=== PATIENT | male | born 1945 | race Caucasian/White ===

== ENCOUNTER 2020-08-31 20:00 | Emergency (ER) | payer MEDICARE, OTHER ==
[~2020-08-31] VITALS: Ht 165.1 cm; Wt 63.5 kg
--- NOTE | ~2020-08-31 | EMS ---
[place] [address] EMS Patient Care Report Name: JEFFERSON MOODY [id number] Admission: 08/31/20 Attend Phys: Discharge: 08/31/20 Date of : 47 Report #: [id number] THIS REPORT FOR: //name// Report Transmitted: 08/31/2020 21:15 EMS Care Summary [facility] Incident [id number] @ 08/31/2020 19:09 Incident Location [address] [place] [address] Patient JEFFERSON MOODY Male, 75 Years 1945 Patient Address [address] [place] [address] Patient History Brain Tumor, Patient Allergies No known allergies, Patient Medications Levetiracetam, Chief Complaint Right Sided Numbness Disposition Transported Lights/[place] Dispatch Reason Falls Transported To [facility] Narrative Dispatch: [facility] was dispatched for a male patient that had fallen down stairs with a possible broken arm. Med 1 copied tones and went en route [place] [address] EMS Patient Care Report Name: JEFFERSON MOODY [facility] [id number] Admission: 08/31/20 Attend Phys: Discharge: 08/31/20 Date of : 47 Report #: [id number] Chief Complaint/Condition: Med 1 arrived on scene to find the patient lying supine on the basement floor. The patient stated he fell approx. 10ft from the top of the stairs but did not have any complaints of pain or injury. The patient presented with slurred speech, right sided deficits, and was A&OX3. Patient did not appear to be in any immediate distress. History of present illness/KONSTANTIN: The patient stated he had a sudden loss of balance and fell down 10ft of stairs. The stated she heard her fall and went to check on him. She stated she called 911 immediately after the fall. 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 The stated the patient's speech appeared to be normal. . Patient denied any loss of consciousness or striking his head or neck. Assessment: Airway: Clear, patent, and self maintained. Breathing: Clear and equal bilaterally. Non labored. Circulation: Skin is pink, warm, and dry. Strong radial pulses. Disability: Patient is A&OX3. Exposures: No life threats were found. See "assessments" tab for further. Reason for ambulance: Patient had a fall down approx. 10 ft of stairs. Patient showed signs of a possible stroke and needed transport to a specialty (stroke) facility. Treatments: ALS assessment. C-Collar placement. Two 20G IV in left and right AC successful. 12 lead EKG showing normal sinus rhythm with RBBB. [place] stroke scale positive and MEND exam showing positive. Stroke activation called from field. Vitals monitored throughout transport. Summary: Med 1 arrived on scene to find the patient lying supine at the bottom of the staircase. The patient stated he did not have any complaints of injury or illness. A c-collar was immediately placed on the patient. The patient was A&OX3 with a GCS of 14. Upon further assessment, the patient had right sided deficits and had difficulty following commands with his right arm or leg during MEND and CPHSS. A blood glucose was taken and showed a reading of 127. Delayed on scene time due to response from [facility] for extrication of the patient from the basement. Once [facility] was on scene, the patient was then placed onto the scoop stretcher, secured in place, and carried up the staircase out to the garage where the stretcher was sitting. The patient was then placed into the ambulance for treatment and transport. Med 1 went en route to [place] with lights and sirens. Two 20 G IV's were successfully placed. A 12 lead EKG was taken showing normal sinus rhythm with a RBBB. IV blood draw was foregone to keep IV access open. Report was given to the hospital and a stroke activation was made. The patient's overall condition remained the same. No further questions or orders were given. Med 1 arrived at destination and the [place] [address] EMS Patient Care Report Name: JEFFERSON MOODY Room: [facility] FAUZIA Barger#: [id number] Admission: 08/31/20 Attend Phys: Discharge: 08/31/20 Date of : 47 Report #: [id number] Report was given and signatures and paperwork were received. Med 1 returned back in service. Initial Vitals @19:41P: 88,BP: 166/87,SpO2: 95,UT Suspected: false @20:10P: 86,UT Suspected: false @19:53P: 87,BP: 186/92,SpO2: 97,UT Suspected: false @19:47P: 86,SpO2: 96, @20:12P: 0,SpO2: 95,UT Suspected: false @20:06P: 86,BP: 160/92,SpO2: 96, @19:20P: 98,R: 18,BP: 170/110,GCS: 14,Glucose: 127,Revised Trauma: 12, @20:01P: 88,BP: 161/90,SpO2: 95,UT Suspected: false Assessments @19:15MENTAL:Person Oriented,Time Oriented,Place Oriented,SKIN:HEENT:LUNG SOUNDS:ABDOMEN:PELVIS//GI:EXTREMITIES:Right Arm: Weakness,Right Leg: Weakness,PULSE:Radial: 2+ Normal,NEURO:Slurred Speech,Weakness Right-Sided,@19:45MENTAL:Place Oriented,Person Oriented,Time Oriented,SKIN:HEENT:LUNG SOUNDS:ABDOMEN:PELVIS//GI:EXTREMITIES:Right Arm: Weakness,Right Leg: Weakness,PULSE:Radial: 2+ Normal,NEURO:Weakness Right-Sided,Slurred Speech, Impression Stroke Procedures @19:15ALS AssessmentResponse: UnchangedSucceeded@19:41Saline Lock 0cc (20 ga) Site: Antecubital-RightResponse: UnchangedSucceeded@19:50Saline Lock 0cc (20 ga) Site: Antecubital-LeftResponse: UnchangedSucceeded@20:0112-Lead ECGResponse: UnchangedSucceeded@20:1212-Lead ECGResponse: UnchangedSucceeded@19:5312-Lead ECGResponse: UnchangedSucceeded@20:1012-Lead ECGResponse: UnchangedSucceeded@19:55Stroke AlertResponse: Unchanged@19:16Spinal Motion RestrictionResponse: UnchangedSucceeded Timeline 19:08,Call Received 19:09,Dispatched 19:12,En Route 19:14,On Scene 19:15,At Patient 19:15,ALS Assessment,Response: UnchangedSucceeded, 19:16,Spinal Motion Restriction,Response: UnchangedSucceeded, 19:20,BP: 170/110 M,PULSE: 98,RR: 18 R,SPO2: Ox,ETCO2: ,B,PAIN: ,GCS: 14, 19:41,Saline Lock 0cc 20 ga Site: Antecubital-Right,Response: UnchangedSucceeded, [place] [address] EMS Patient Care Report Name: JEFFERSON MOODY Room: [facility]#: [id number] Admission: 08/31/20 Attend Phys: Discharge: 08/31/20 Date of : 47 Report #: [id number] 19:41,BP: 166/87 M,PULSE: 88,RR: R,SPO2: 95 Ox,ETCO2: ,BG: ,PAIN: ,GCS: , 19:42,Depart Scene 19:47,BP: / M,PULSE: 86,RR: R,SPO2: 96 Ox,ETCO2: ,BG: ,PAIN: ,GCS: , 19:50,Saline Lock 0cc 20 ga Site: Antecubital-Left,Response: UnchangedSucceeded, 19:53,12-Lead ECG,Response: UnchangedSucceeded, 19:53,BP: 186/92 M,PULSE: 87,RR: R,SPO2: 97 Ox,ETCO2: ,BG: ,PAIN: ,GCS: , 19:55,Stroke Alert,Response: Unchanged 20:01,12-Lead ECG,Response: UnchangedSucceeded, 20:01,BP: 161/90 M,PULSE: 88,RR: R,SPO2: 95 Ox,ETCO2: ,BG: ,PAIN: ,GCS: , 20:06,BP: 160/92 M,PULSE: 86,RR: R,SPO2: 96 Ox,ETCO2: ,BG: ,PAIN: ,GCS: , 20:10,12-Lead ECG,Response: UnchangedSucceeded, 20:10,BP: / M,PULSE: 86,RR: R,SPO2: Ox,ETCO2: ,BG: ,PAIN: ,GCS: , 20:10,At Destination 20:12,12-Lead ECG,Response: UnchangedSucceeded, 20:12,BP: / M,PULSE: 0,RR: R,SPO2: 95 Ox,ETCO2: ,BG: ,PAIN: ,GCS: , 20:58,Call Closed Disclaimer v1.1 Copyright 2020 [employer] This EMS Care Summary contains data elements from the applicable legal record (which may be displayed differently). It is designed to provide pertinent information for the following purposes: continuity of care, clinical quality, and state data reporting. The complete legal record is available to ED staff and administrators of the receiving hospital in [employer] Patient Tracker. All data is provided "as is."
[2020-08-31 20:51] LABS: ABSOLUTE BASOPHILS 0.1 thou/uL (0.0-0.2); ABSOLUTE LYMPHOCYTES 2.1 thou/uL (0.8-5.3); ABSOLUTE MONOCYTES 0.7 thou/uL (0.0-1.2); ABSOLUTE NEUTROPHILS 8.9 thou/uL (1.6-8.1); BASOPHILS 0.7 %; EOSINOPHILS 0.3 %; HEMATOCRIT 46.1 % (42.0-52.0); HEMOGLOBIN 15.3 gm/dL (14.0-18.0); LYMPHOCYTES 18.1 %; MCHC 33.3 g/dL (28.0-37.0); MCV 90.2 fL (80.0-100.0); MONOCYTES 5.7 %; MPV 8.5 fl. (7.2-11.1); NUCLEATED RBCS 0 /100WBC; PLATELET COUNT* 213 thou/uL (150-400); POLYS 75.2 %; RBC 5.11 mil/uL (4.50-6.00); RDW-CV 13.2 % (10.5-14.5); WBC 11.9 thou/uL (4.0-11.0)
[2020-08-31 21:01] LABS: APTT 24.5 Seconds (25.0-31.3); INR 1.1; PROTIME 11.3 Seconds (9.20-11.50)
[2020-08-31] MEDS ORDERED: KEPPRA XR500 MG PO (21:05)
[2020-08-31 21:31] LABS: CALCIUM 9.1 mg/dL (8.5-10.1); CREATININE 1.1 mg/dL (0.6-1.3); POTASSIUM 3.6 mmol/L (3.5-5.1)
[2020-08-31 21:36] LABS: TOTAL BILIRUBIN 0.4 mg/dL (<0.1-1.0); TOTAL PROTEIN 7.3 g/dL (6.4-8.2)
[2020-08-31 21:59] VITALS: BP 151/82
--- NOTE | 2020-09-01 09:55 | EKG ---
[place] [address] ELECTROCARDIOGRAM REPORT Name: JEFFERSON MOODY Room: [facility]#: [id number] Admission: 08/31/20 Attend Phys: Discharge: 08/31/20 Date of : 47 Date of Service: 08/31/202038 Report #: [id number] THIS REPORT FOR: //name// [facility] ED Test Date: 2020-08-31 Test Time: 20:39:46 Pat Name: JEFFERSON MOODY Department: Room: Gender: Environmental Engineering Technician: [place] : 1945 Requested By: Gavi Josue Order Number: [id number] Dominique MD: Cheko Arias Measurements Intervals [place] Rate: 79 P: 49 GA: 127 QRS: -31 QRSD: 139 T: -3 QT: 397 QTc: 456 Interpretive Statements Sinus rhythm artifact noted Right bundle branch block No previous ECG available for comparison Electronically Signed On 09-01-2020 9:54:58 CDT by Cheko Arias [email or web address] <ELECTRONICALLY SIGNED> By: Cheko Arias MD, [facility] 09/01/2054 38 38 Cheko Arias MD, FACC /EPI
== END 2020-08-31 22:01 | disposition short-term general hospital (02) ==
LOC: M.ERS 20:00
PROVIDERS: Personal Emergency Response Attendant
DX: S12.590A Other displaced fracture of sixth cervical vertebra, initial encounter for closed fracture (principal); I63.9 Cerebral infarction, unspecified; Z20.828 Contact with and (suspected) exposure to other viral communicable diseases; W17.89XA Other fall from one level to another, initial encounter; Y93.89 Activity, other specified; Y92.89 Other specified places as the place of occurrence of the external cause; Y99.8 Other external cause status